=== PATIENT | male | born 1980 | race Caucasian/White ===

== ENCOUNTER 2017-09-06 21:29 | Inpatient (IN) | payer OTHER ==
[~2017-09-06] VITALS: Ht 177.8 cm; Wt 136.1 kg
== END 2017-09-11 17:18 | disposition home or self-care (01) | DRG 195 ==
LOC: ER 21:29 → SEC-K 09-07 11:39 → MEDJ 09-07 11:39 → MEDI 09-07 20:41 → MEDJ 09-07 20:41
PROC: 4A033R1 Measurement of Arterial Saturation, Peripheral, Percutaneous Approach (ICD-10-PCS; principal; 2017-09-07)
PROC: 3E0F7GC Introduction of Other Therapeutic Substance into Respiratory Tract, Via Natural or Artificial Opening (ICD-10-PCS; 2017-09-07)
PROC: BW24YZZ Computerized Tomography (CT Scan) of Chest and Abdomen using Other Contrast (ICD-10-PCS; 2017-09-07)
PROC: B246ZZZ Ultrasonography of Right and Left Heart (ICD-10-PCS; 2017-09-07)
PROC: 8E0ZXY6 Isolation (ICD-10-PCS; 2017-09-07)
PROC: 4A12X4Z Monitoring of Cardiac Electrical Activity, External Approach (ICD-10-PCS; 2017-09-09)
DX: J09.X2 Influenza due to identified novel influenza A virus with other respiratory manifestations (principal); J20.9 Acute bronchitis, unspecified; R09.02 Hypoxemia; E66.01 Morbid (severe) obesity due to excess calories; R55 Syncope and collapse; G47.33 Obstructive sleep apnea (adult) (pediatric)

== ENCOUNTER → 2017-12-02 | Emergency (ER) | payer OTHER ==
[~2017-12-02] VITALS: Ht 177.8 cm; Wt 140.6 kg
[~2017-12-02] MED LIST: KETO10TA2 PO
== END | disposition home or self-care (01) ==
LOC: ER 22:27
DX: M79.642 Pain in left hand (principal); M79.641 Pain in right hand

== ENCOUNTER → 2018-02-17 | Emergency (ER) | payer OTHER ==
[~2018-02-17] VITALS: Ht 177.8 cm; Wt 136.1 kg
[~2018-02-17] MED LIST changes: +CETIRIZINE HCL10 M1 PO; +LOTRISONE CREAM45 GM TOP; +NIZORAL120 ML TOP
== END | disposition home or self-care (01) ==
LOC: ER 02:33
DX: B35.8 Other dermatophytoses (principal); L30.8 Other specified dermatitis

== ENCOUNTER 2019-07-27 22:52 | Emergency (ER) | payer OTHER ==
[~2019-07-27] VITALS: Ht 177.8 cm; Wt 13.2 kg
[2019-07-28] MEDS ORDERED: KETO10TA2 PO (01:51)
== END 2019-07-28 01:58 ==
LOC: ER 22:52
DX: M25.562 Pain in left knee (principal)

== ENCOUNTER 2022-04-16 07:23 | Emergency (ER) | payer OTHER ==
[~2022-04-16] VITALS: Ht 177.8 cm; Wt 136.1 kg
== END 2022-04-16 10:15 | disposition home or self-care (01) ==
LOC: ER 07:23
DX: T78.3XXA Angioneurotic edema, initial encounter (principal); X58.XXXA Exposure to other specified factors, initial encounter; Y93.9 Activity, unspecified; Y92.9 Unspecified place or not applicable; Y99.9 Unspecified external cause status

== ENCOUNTER 2023-10-13 09:10 | Emergency (ER) | payer OTHER ==
[~2023-10-13] VITALS: Ht 177.8 cm; Wt 148.8 kg
[2023-10-13] MEDS ORDERED: HYOSCYAMINE SULFATE 0.125 MG TAB.SUBL SL ONE (09:45)
[2023-10-13] MEDS ORDERED: MEPERIDINE HCL/PF 50 MG/ML VIAL IM ONE (09:45)
[2023-10-13] MEDS ORDERED: FAMOTIDINE/PF 20 MG/2 ML VIAL IV PUSH ONE (09:45)
[2023-10-13] MEDS ORDERED: PROMETHAZINE HCL 50 MG/ML AMPUL IM ONE (09:45)
[2023-10-13 10:12] LABS: HEMATOCRIT 41.1 % (39.0-48.0); HEMOGLOBIN 13.9 g/dL (13-16.00); MEAN CELL VOLUME 82.8 fL (80.0-100.00); MEAN CORPUSCULAR HEMOGLOBIN 27.9 pg (27.00-32.0); MEAN CORPUSCULAR HGB CONC 33.7 g/dl (32.0-36.0); PLATELET COUNT 319 K/uL (150-450); RED BLOOD COUNT 4.97 M/uL (4.00-6.00); RED CELL DISTRIBUTION WIDTH 14.4 % (11.5-14.5)
[2023-10-13 10:37] LABS: ALBUMIN 3.3 gm/dL (3.4-5.0); BILIRUBIN TOTAL 0.23 mg/dL (0.3-1.2); CALCIUM 9.1 mg/dL (8.5-10.1); CREATININE SERUM 0.85 mg/dL (0.70-1.30); GFR 97.92; GLOBULINA 4.1 G/DL (2.4-3.5); POTASSIUM 4.09 mEq/L (3.5-5.1); TOTAL PROTEIN 7.4 gm/dL (6.4-8.2)
[2023-10-13 11:22] LABS: URINE APPEARANCE Clear; URINE BILIRRUBIN Negative (NEGATIVE); URINE BLOOD Negative; URINE COLOR Yellow; URINE GLUCOSE Negative (NEGATIVE); URINE LEUKOCYTE Negative; URINE NITRATE Negative; URINE PROTEIN Negative (NEGATIVE); URINE UROBILINOGEN 0.2 E.U./dl
[2023-10-13 11:25] LABS: URINE BACTERIA 27.6 uL (0.0-1933); URINE EPITHELIAL CELLS 1.9 uL (0.0-38.8); URINE RBC 4.5 uL (0.0-20.8)
[2023-10-13 12:09] LABS: URINE WBC 0.7 uL (0.0-23.2)
== END 2023-10-13 12:53 | disposition home or self-care (01) ==
LOC: ER 09:10
PROVIDERS: General Practice
DX: K80.20 Calculus of gallbladder without cholecystitis without obstruction (principal); R10.13 Epigastric pain